=== PATIENT | male | born 1980 | race Caucasian/White ===

== ENCOUNTER 2021-02-09 02:33 | Emergency (ER) | payer OTHER ==
[~2021-02-09] VITALS: Ht 167.6 cm; Wt 72.6 kg
--- NOTE | 2021-02-09 02:38 | NUR ---
PT BROUGHT TO BED 3 VIA [facility] RAMÍREZ
--- NOTE | 2021-02-09 02:45 | NUR ---
41 yo m biba from home with c/c of etoh. per ems pt was combative, pt given verced iv 2.5mg on route and zofran. pt is a&o x0, responsive to pain. placed on hall monitor and 4l of o2, sating at 100%. vss. pt is in stable condition. bed locked in lowest position, side rails x2. unable to obtain hx and rx
[2021-02-09 02:46] VITALS: BP 117/83
[2021-02-09] MEDS: NACL 0.9% 1,000 ML IV ONE (03:11)
--- NOTE | 2021-02-09 03:14 | NUR ---
lab at bedside.
--- NOTE | 2021-02-09 03:20 | NUR ---
ermd at bedside eval pt. instructed to hold off on straight cath since pt is more reactive, will wait until pt is awake.
[2021-02-09 03:40] LABS: BASOPHILS # (AUTO) 0.1 K/uL (0.00-0.22); BASOPHILS % (AUTO) 1.1 % (0.0-2.0); EOSINOPHILS % (AUTO) 0.7 % (0.0-4.0); HEMATOCRIT 41.6 % (36-52); HEMOGLOBIN 14.1 g/dL (12.0-18.0); LYMPHOCYTES # (AUTO) 1.5 K/uL (2.0-11.5); LYMPHOCYTES % (AUTO) 21.7 % (20.5-51.1); MEAN CORPUSCULAR HEMOGLOBIN 31 pg (27-31); MEAN CORPUSCULAR HGB CONC 34 g/dL (33-37); MEAN CORPUSCULAR VOLUME 91.6 fL (80-94); MONOCYTES # (AUTO) 0.4 K/uL (0.8-1.0); MONOCYTES % (AUTO) 5.2 % (1.7-9.3); NEUTROPHILS # (AUTO) 4.9 K/uL (1.8-7.7); NEUTROPHILS % (AUTO) 71.3 % (42.2-75.2); PLATELET COUNT (AUTO) 285 K/uL (140-450); RED BLOOD CELL COUNT(AUTO) 4.54 MIL/uL (4.20-6.10); RED CELL DISTRIBUTION WIDTH 13.6 % (11.6-13.7); WHITE BLOOD COUNT (AUTO) 6.9 K/uL (4.8-10.8)
[2021-02-09 03:59] LABS: ANION GAP 14.5 (8-16); ASPARTATE AMINOTRANSFERASE 30 U/L (15-37); CHLORIDE 108 mmol/L (98-107); CREATININE 1.1 mg/dL (0.6-1.3); GFR ARICAN-AMERICAN 94 mL/min (>90); GLUCOSE 121 mg/dL (74-106); POTASSIUM 3.5 mmol/L (3.5-5.1); SODIUM SERUM 145 mmol/L (136-145); TOTAL BILIRUBIN 0.5 mg/dL (0.0-1.0); UREA NITROGEN, BLOOD 13 mg/dL (7-18)
[2021-02-09 04:00] LABS: ACETAMINOPHEN < 0.5 ug/ml (10-30); SALICYLATE < 2.8 mg/dL (2.8-20.0)
--- NOTE | 2021-02-09 04:07 | NUR ---
PT TAKEN TO CT
--- NOTE | 2021-02-09 04:15 | NUR ---
PT RETURNED FROM CT
--- NOTE | 2021-02-09 04:17 | NUR ---
small black bag with white powder fell out of pt's shoe while removing. placed in belonging bag, labeled and placed back in pt's room.
--- NOTE | 2021-02-09 06:10 | NUR ---
pt is sleeping. equal rise and fall of chest wall, opens eyes to pain. vss. pt in stable condition. bed locked in lowest position, side rails x2.
--- NOTE | 2021-02-09 06:27 | NUR ---
spoke to gino, stated they would cook pickled meat pt shortly.
--- NOTE | 2021-02-09 06:30 | NUR ---
pt is awake, able to answer simple questions. all needs met at this time. side rails x2, bed locked in lowest position.
--- NOTE | 2021-02-09 06:50 | NUR ---
PT WAS ABLE TO GET UP ON HIS OWN WELL WALK. 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
[2021-02-09 06:52] VITALS: BP 110/75
--- NOTE | 2021-02-09 06:52 | NUR ---
Patient discharged with v/s stable. Written and verbal after care instructions given and explained. Patient verbalized understanding. Ambulatory with steady gait. All questions addressed prior to discharge. Advised to follow up with PMD.
== END 2021-02-09 06:52 | disposition home or self-care (01) ==
LOC: EDBD 02:33 → MED 02:33
DX: F10.129 Alcohol abuse with intoxication, unspecified (principal); R41.82 Altered mental status, unspecified; Y90.9 Presence of alcohol in blood, level not specified
CPT/HCPCS: 36415; 70450; 80053; 85025; 96360; 99285; G0480; G0482; J7030